=== PATIENT | male | born 1930 | race Caucasian/White ===

== ENCOUNTER → 2019-09-04 | Outpatient (CLI) | payer MEDICARE ==
[~2019-09-04] MED LIST: ACDPT PO; AMLO5TAB2 PO; BRIM5DRO7 OP; CPR500T PO; FINA5TAB PO; IBP600T1 PO; LABE100T2 PO; LVT.1T PO; MEGE20TA6 PO; NAPR-243 PO; NF-TYLARTH PO; OMEP20CA12 PO; OXYB5TAB9 PO; PHEN200T27 PO; ROSU10TA12 PO; SIMV40TA4 PO; TERA5CAP10 PO; TML5OP2.5 OP; TRAV5DRO2 OP
--- NOTE | 2019-09-04 11:59 | Diagnostic Imaging Report ---
Indication: Lower respiratory infection PA and lateral chest There is some consolidation at the right lung base. Left lung is clear. No appreciable effusion or pneumothorax. IMPRESSION: Right basilar consolidation suspicious for pneumonia. Dictated by: Dictated on workstation # [id number]
== END ==
LOC: RAD FS 10:54
PROVIDERS: ATTEND Nurse Practitioner Family
DX: J22 Unspecified acute lower respiratory infection (principal)
CPT/HCPCS: 71046

== ENCOUNTER → 2020-01-15 | Outpatient (CLI) | payer MEDICARE ==
--- NOTE | 2020-01-15 15:47 | Diagnostic Imaging Report ---
INDICATION: Fall with injury to head and blurred vision. TECHNIQUE: Multiple contiguous axial images were obtained through the brain without the use of intravenous contrast. Auto Exposure Controls were utilized during the CT exam to meet ALARA standards for radiation dose reduction. There is no previous study for comparison. There are mild diffuse atrophic changes. There are patchy low-density changes in the deep white matter compatible with chronic ischemic change. There is mild ventriculomegaly due to volume loss. There is no acute hemorrhage or mass effect or midline shift. Calvarial windows show no evidence of fracture. IMPRESSION: Chronic changes as described above with no acute intracranial abnormality. Dictated by: Dictated on workstation # [id number]
== END ==
LOC: RAD FS 15:15
PROVIDERS: ATTEND Nurse Practitioner Family
DX: S09.90XA Unspecified injury of head, initial encounter (principal); W19.XXXA Unspecified fall, initial encounter
CPT/HCPCS: 70450

== ENCOUNTER 2020-11-04 21:22 | Emergency (ER) | payer MEDICARE ==
[2020-11-04 21:46] VITALS: BP 197/64
--- NOTE | 2020-11-04 21:47 | ED Fall/Injury ---
General Stated Complaint: FALL Source: patient, EMS History of Present Illness Date Seen by Provider: Nov 04, 2020 Time Seen by Provider: 21:23 Initial Comments 89-year-old male presenting by EMS from home after having fallen. Patient denies having any pain other than skin tears. He has multiple skin tears on his extremities. He denies hitting his head or losing consciousness. He denies taking any blood thinners. He has a large skin tear to the left forearm, left forearm, right elbow. He states his last tetanus was within the last few years. He states he lost his balance and fell. He does have a dialysis shunt in his left arm that is intact with good thrill and bruit. He denies LOC, nausea, vomiting, chest pain, abdominal pain. Moving all extremities without pain/difficulty. Occurred: just prior to arrival Loss of Consciousness: no loss of consciousness Associated Symptoms (Fall): No Abdominal Pain, No Chest Pain, No Confusion, No Dizziness, No Headache, No Lightheadedness, No Muscle Spasms, No Nausea/Vomiting, No Neck Pain, No Ringing in Ears, No Seizures, No Shortness of Air, No Slurred Speech, No Trouble Walking, No Vision Changes (chronic decreased vision without acute change) Allergies and Home Medications Allergies Coded Allergies: No Known Drug Allergies (Unverified , 09/30/09) Home Medications Acetaminophen/Diphenhydramine 1 Ea Tab, 2 EA PO HS, (Reported) Amlodipine Besylate 5 Mg Tablet, 5 MG PO DAILY, (Reported) Brimonidine Tartrate 5 Ml Drops, 5 ML OP BID, (Reported) Ciprofloxacin 500 Mg Tablet, 1 TAB PO BID, (Reported) TAKE ONE BY MOUTH TWICE A DAY FOR 7 DAYS. USE ALL OF THIS MEDICATION PRESCRIBED Ibuprofen 600 Mg Tab, 600 MG PO DAILY, (Reported) Labetalol Hcl 100 Mg Tablet, 2 EACH PO DAILY, (Reported) Levothyroxine Sodium 100 Mcg Tablet, 1 EACH PO DAILY, (Reported) Megestrol Acetate 20 Mg Tablet, 20 MG PO BID, (Reported) Omeprazole 20 Mg Capsule.dr, 1 CAP PO DAILY, (Reported) Oxybutynin Chloride 5 Mg Tablet, 1 EACH PO TID, (Reported) Phenazopyridine Hcl 200 Mg Tablet, 1 EACH PO TID PRN, (Reported) MAY TAKE ONE TABLET BY MOUTH UP TO THREE TIMES A DAY NEEDED FOR BLADDER SPASM/PAIN Rosuvastatin Calcium 10 Mg Tablet, 1 EACH PO DAILY, (Reported) Timolol Maleate 5 Ml Btl, 1 DROP OP BID, (Reported) Travoprost (Benzalkonium) 5 Ml Drops, 5 ML OP DAILY, (Reported) Patient Home Medication List Home Medication List Reviewed: Yes Review of Systems Review of Systems Constitutional: No chills, No fever Eyes: See HPI Ears, Nose, Mouth, Throat: no symptoms reported Respiratory: no symptoms reported Cardiovascular: no symptoms reported Gastrointestinal: no symptoms reported Genitourinary: no symptoms reported Musculoskeletal: see HPI Skin: see HPI Psychiatric/Neurological: See HPI Past Wzzvndf-Kvyyxs-Xyvypj Hx Past Medical History Hypertension Reproductive Disorders: No Dialysis Physical Exam Vital Signs Vital Signs - First Documented 11/04/20 21:46 Pulse 67 Resp 18 B/P (MAP) 197/64 (108) Pulse Ox 97 O2 Delivery Room Air Capillary Refill : Height, Weight, BMI Height: '" Weight: lbs. oz. kg; BMI Method: General Appearance: no apparent distress, other (chronically ill) HEENT: other (hard of hearing with hearing aids inplace bilaterally) Neck: non-tender, supple Cardiovascular: normal peripheral pulses, regular rate, rhythm Respiratory: chest non-tender, lungs clear Gastrointestinal: normal bowel sounds, non tender, soft, no pulsatile mass Extremities: normal range of motion, normal capillary refill, other (mild tenderness at sites of skin tears on arms) Neurologic/Psychiatric: manager army II-XII nml as tested, alert, normal mood/affect, oriented x 3 Skin: warm/dry, other (thin skin with multiple skin tears to left forearm, left upper arm, right elbow) Prasanna Coma Score Best Eye Response: (4) Open Spontaneously Best Verbal Response: (5) Oriented Best Motor Response: (6) Obeys Commands Wallace Total: 15 Progress/Results/Core Measures Results/Orders Vital Signs/I&O 11/04/20 21:46 Pulse 67 Resp 18 B/P (MAP) 197/64 (108) Pulse Ox 97 O2 Delivery Room Air Progress Progress Note : Progress Note cleaned skin tears with chlorhexidine and sterile water. nurse attempted to reapproximate wound edges and use steri strips to hold skin tears in place. Then applied nonstick dressings. Counseled on follow up and return precautions and wound care. As he is not on blood thinners and did not hit head, has no LOC, is alert and oriented will defer imaging. Departure Impression Primary Impression: Skin tear of left upper arm without complication Qualified Codes: S41.112A - Laceration without foreign body of left upper arm, initial encounter Additional Impressions: Skin tear of left forearm without complication Qualified Codes: S51.812A - Laceration without foreign body of left forearm, initial encounter Skin tear of right elbow without complication Qualified Codes: S51.011A - Laceration without foreign body of right elbow, initial encounter Fall Qualified Codes: W19.XXXA - Unspecified fall, initial encounter Disposition: HOME, SELF-CARE Condition: Stable Departure-Patient Inst. Decision time for Depature: 21:46 Referrals: [facility] [place] (PCP/Family) Primary Care Physician Patient Instructions: Preventing Falls ED, Wound Care ED Add. Discharge Instructions: Keep skin tears clean with gentle soap and water. The steri strips will come off on their own after a week or so. Follow up with clinic for continued concerns about the skin tears or signs of infection GINNY AGUILAR MD Nov 04, 2020 21:47
== END 2020-11-04 21:55 | disposition home or self-care (01) ==
LOC: EDUNIT# 21:22 → ER FS 21:22
DX: S41.112A Laceration without foreign body of left upper arm, initial encounter (principal); S51.812A Laceration without foreign body of left forearm, initial encounter; S51.011A Laceration without foreign body of right elbow, initial encounter; I10 Essential (primary) hypertension; Z79.899 Other long term (current) drug therapy; Z99.2 Dependence on renal dialysis; W18.30XA Fall on same level, unspecified, initial encounter

== ENCOUNTER 2020-11-22 08:43 | Emergency (ER) | payer MEDICARE ==
[~2020-11-22] VITALS: Ht 167.7 cm; Wt 63.5 kg
--- NOTE | 2020-11-22 09:19 | Diagnostic Imaging Report ---
INDICATION: Fall with right posterior rib pain. COMPARISON: 09/04/2019. EXAMINATION: Right ribs, 3 views. FINDINGS: The PA chest shows cardiomegaly. There has been development of pulmonary venous congestion with interstitial infiltrates and small pleural effusions since the previous exam. No rib fractures are demonstrated. No pneumothorax. IMPRESSION: 1. Changes have occurred since the previous exam, consistent with congestive failure with pulmonary edema and small pleural effusions. 2. No displaced rib fractures are demonstrated. No pneumothorax. Dictated by: Dictated on workstation # [id number]
[2020-11-22] MEDS ORDERED: DOXY100C2 (09:21)
[2020-11-22] MEDS ORDERED: VIT1TABL52 (09:21)
[2020-11-22] MEDS ORDERED: ACETAMINOPHEN 500 MG TAB (TYLENOL) PO STA (09:36)
[2020-11-22] MEDS ORDERED: ACHD5005 PO (09:42)
--- NOTE | 2020-11-22 09:43 | ED Fall/Injury ---
General Chief Complaint: Back Problems Stated Complaint: FALL Nursing Triage Note: transports pt per POV to ED requiring assistance as pt with severe right sided back pain increased with movements. states they are in route to dialysis at [facility]. Pt was walking with walker in his garage last night when he fell to floor on right side. Pt's neighbors do lift assist for . Source: patient, old records, spouse History of Present Illness Date Seen by Provider: Nov 22, 2020 Time Seen by Provider: 08:45 Initial Comments 89-year-old male presenting with his to the emergency department due to right sided rib pain. 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 He has a walker that he uses to help get around with. Last night while he was walking for exercise in the garage he stopped to rest and the walker did not walk properly and he fell. He was having pain to the right chest wall and got Tylenol last night. He was able to rest but today when he got up to go to dialysis he was still having severe pain so they stopped here to be evaluated before going to dialysis. He denies any new shortness of breath, fever, chills, loss of consciousness, nausea, vomiting Occurred: yesterday Severity: severe Injuries/Pain Location: chest (Right-sided ribs) Loss of Consciousness: no loss of consciousness Modifying Factors: Worse With Movement Associated Symptoms (Fall): No Abdominal Pain, No Confusion, No Dizziness, No Headache, No Lightheadedness, No Muscle Spasms, No Nausea/Vomiting, No Neck Pain, No Ringing in Ears, No Seizures, No Shortness of Air, No Slurred Speech; Trouble Walking (Chronic and has to use a walker); No Vision Changes Allergies and Home Medications Allergies Coded Allergies: No Known Drug Allergies (Unverified , 09/30/09) Patient Home Medication List Home Medication List Reviewed: Yes Acetaminophen/Diphenhydramine (Tylenol Pm) 1 Ea Tab, 2 EA PO HS, (Reported) Entered as Reported by: TERESA MINOR on 09/30/091435 Last Action: Last Taken Edited Amlodipine Besylate (Amlodipine Besylate) 5 Mg Tablet, 5 MG PO DAILY, (Reported) Entered as Reported by: TERESA MINOR on 09/30/091435 Last Action: Last Taken Edited Brimonidine Tartrate (Brimonidine Tartrate) 5 Ml Drops, 5 ML OP BID, (Reported) Entered as Reported by: TERESA MINOR on 09/30/091435 Last Action: Last Taken Edited Doxycycline Hyclate (Doxycycline Hyclate) 100 Mg Capsule, (Reported) Entered as Reported by: NITO ROJAS on 11/22/20920 Last Action: New Order Hydrocodone/Acetaminophen (Hydrocodone-Acetamin 5-325 mg) 1 Each Tablet, 1 TAB PO Q8H PRN for PAIN-SEVERE (8-10) Prescribed by: GINNY AGUILAR on 11/22/20942 Ibuprofen (Motrin) 600 Mg Tab, 600 MG PO DAILY, (Reported) Entered as Reported by: TERESA MINOR on 07/27/11733 Last Action: Last Taken Edited Labetalol Hcl (Labetalol Hcl) 100 Mg Tablet, 2 EACH PO DAILY, (Reported) Entered as Reported by: TERESA MINOR on 09/30/091435 Last Action: Last Taken Edited Levothyroxine Sodium (Levothyroxine 100 Mcg Tab) 100 Mcg Tablet, 1 EACH PO DAILY, (Reported) Entered as Reported by: TERESA MINOR on 09/30/091435 Last Action: Last Taken Edited Megestrol Acetate (Megestrol Acetate) 20 Mg Tablet, 20 MG PO BID, (Reported) Entered as Reported by: TERESA MINOR on 09/30/091435 Last Action: Last Taken Edited Omeprazole (Omeprazole) 20 Mg Capsule.dr, 1 CAP PO DAILY, (Reported) Entered as Reported by: TERESA MINOR on 09/30/091435 Last Action: Last Taken Edited Oxybutynin Chloride (Oxybutynin Chloride) 5 Mg Tablet, 1 EACH PO TID, (Reported) Entered as Reported by: TERESA MINOR on 07/27/11733 Last Action: Last Taken Edited Rosuvastatin Calcium (Crestor) 10 Mg Tablet, 1 EACH PO DAILY, (Reported) Entered as Reported by: TERESA MINOR on 07/27/11733 Last Action: Last Taken Edited Timolol Maleate (Timoptic 0.5%) 5 Ml Btl, 1 DROP OP BID, (Reported) Entered as Reported by: TERESA MINOR on 09/30/091435 Last Action: Last Taken Edited Travoprost (Benzalkonium) (Travatan 0.004% Eye Drop) 5 Ml Drops, 5 ML OP DAILY, (Reported) Entered as Reported by: TERESA MINOR on 09/30/09 1436 Last Action: Last Taken Edited Vit B Cmplx 3/FA/Vit C/Biotin (Nephro-Oj Rx Tablet) 1 Each Tablet, (Reported) Entered as Reported by: NITO ROJAS on 11/22/2021 Last Action: New Order Discontinued Medications Ciprofloxacin (Cipro) 500 Mg Tablet, 1 TAB PO BID, (Reported) Discontinued Reason: Referral/FU Appt-Addtl Entered as Reported by: DIMPLE QUIROZ on 08/01/11930 Last Action: Discontinued Phenazopyridine Hcl (Pyridium) 200 Mg Tablet, 1 EACH PO TID PRN, (Reported) Discontinued Reason: Referral/FU Appt-Addtl Entered as Reported by: DIMPLE QUIROZ on 08/01/11930 Last Action: Discontinued Review of Systems Review of Systems Constitutional: see HPI Eyes: See HPI Ears, Nose, Mouth, Throat: no symptoms reported Respiratory: see HPI Cardiovascular: no symptoms reported Gastrointestinal: no symptoms reported Musculoskeletal: see HPI Skin: change in color (bruising to right side of chest) Psychiatric/Neurological: Denies Headache Past Eqrnuxm-Javabt-Lydomc Hx Patient Social History Tobacco Use?: Yes Smokeless Tobacco Frequency: Current Everyday User Use of E-Cig and/or Vaping dev: No Substance use?: No Alcohol Use?: Yes Alcohol type: Hard Liquor Alcohol Frequency: Couple times a week Pt feels they are or have been: No Immunizations Up To Date First/Initial COVID19 Vaccinat: 04/10/20 Second COVID19 Vaccination [place]: 05/02/20 COVID19 Vaccine Drier Operator Head: Regine Past Medical History Surgery/Hospitalization HX: ESRD- Hemodialysis Hypertension Reproductive Disorders: No Dialysis Physical Exam Vital Signs Vital Signs - First Documented 11/22/20 08:50 Temp 36.7 Pulse 66 Resp 22 B/P (MAP) 207/73 (117) Pulse Ox 96 O2 Delivery Room Air Capillary Refill : Less Than 3 Seconds Height, Weight, BMI Height: '" Weight: lbs. oz. kg; 22.00 BMI Method: General Appearance: other (chronically ill) Neck: non-tender, full range of motion, supple, normal inspection Cardiovascular: normal peripheral pulses Respiratory: No no respiratory distress, No no accessory muscle use; decreased breath sounds, crackles; No stridor; other (tender to palpation and movement of right side of chest) Gastrointestinal: normal bowel sounds, non tender, soft, no pulsatile mass Extremities: normal range of motion, normal capillary refill Neurologic/Psychiatric: alert, oriented x 3 Skin: warm/dry [place] Coma Score Best Eye Response: (4) Open Spontaneously Best Verbal Response: (5) Oriented Best Motor Response: (6) Obeys Commands Prasanna Total: 15 Progress/Results/Core Measures Results/Orders My Orders Orders - GINNY AGUILAR MD Ribs/Unilateral With Chest (11/22/20 08:54) Acetaminophen Tablet (Tylenol Tablet) (11/22/20 09:36) Vital Signs/I&O 11/22/20 11/22/20 08:50 09:40 Temp 36.7 36.7 Pulse 66 Resp 22 B/P (MAP) 207/73 (117) Pulse Ox 96 O2 Delivery Room Air Blood Pressure Mean: 117 Progress Progress Note #1: Progress Note I saw the patient as he came in by wheelchair from the car. I was performing a procedure on another patient so I had the nurses finish with his triage and fount his only area of pain was in right chest wall. Ordered chest film with unilateral ribs. Progress Note #2: Progress Note Xrays do not demonstrate any acute fractures of ribs. increased pulmonary vascular congestion/heart failure consistent with needing dialysis today. Give Acetaminophen for pain and send script for a few hydrocodone for severe pain. Counseled on ice and heat for chest wall pain and why to avoid using comopression of ribs and chest since could cause pneumonia. Advised of follow up and return precautions. Diagnostic Imaging Diagonstic Imaging: Xray Plain Films/CT/US/NM/MRI: chest Comments [facility]. [place], [place] NAME: [facility] REC#: [id number] PT STATUS: REG ER : 1930 PHYSICIAN: GINNY AGUILAR MD ADMIT DATE: 11/22/20/ER FS Draft Date of Exam:11/22/20 RIBS/UNILATERAL WITH CHEST INDICATION: Fall with right posterior rib pain. COMPARISON: 09/04/2019. EXAMINATION: Right ribs, 3 views. FINDINGS: The PA chest shows cardiomegaly. There has been development of pulmonary venous congestion with interstitial infiltrates and small pleural effusions since the previous exam. No rib fractures are demonstrated. No pneumothorax. IMPRESSION: 1. Changes have occurred since the previous exam, consistent with congestive failure with pulmonary edema and small pleural effusions. 2. No displaced rib fractures are demonstrated. No pneumothorax. Dictated on workstation # [id number] Dict: 11/22/20914 Trans: 11/22/20918 [id number] Interpreted by: SRIRMA REYNOSO MD Electronically signed by: Reviewed: Reviewed by Me Departure Impression Primary Impression: Contusion of right chest wall Qualified Codes: S20.211A - Contusion of right front wall of thorax, initial encounter Additional Impression: Fall at home Qualified Codes: W19.XXXA - Unspecified fall, initial encounter; Y92.009 - Unspecified place in unspecified non-institutional (private) residence as the place of occurrence of the external cause Disposition: HOME, SELF-CARE Condition: Stable Departure-Patient Inst. Decision time for Depature: 09:43 Referrals: EVERETTE CASTLE APRN (PCP) Primary Care Physician [facility] (Family) Primary Care Physician Patient Instructions: Preventing Falls ED, Rib Fracture or Bruised Rib ED Add. Discharge Instructions: Take Acetaminophen for pain and alternate ice and heat to your side to help with inflammation and pain. If the Acetaminophen is not strong enough to control your pain alone then you can take the Hydrocodone for severe pain and each of those pills has 325 mg of Acetaminophen in the pill. Limit your Acetaminophen dosage to under 3,000 mg in a 24 hour period. Check back with clinic if having continued pain and problems All discharge instructions reviewed with patient and/or family. Voiced understanding. Scripts Hydrocodone/Acetaminophen (Hydrocodone-Acetamin 5-325 mg) 1 Each Tablet 1 TAB PO Q8H PRN for PAIN-SEVERE (8-10) for 7 Days, #20 TAB 0 Refills Prov: GINNY AGUILAR MD 11/22/20 GINNY AGUILAR MD Nov 22, 2020 09:43
[2020-11-22 09:46] VITALS: BP 206/73
== END 2020-11-22 09:46 | disposition home or self-care (01) ==
LOC: EDUNIT# 08:43 → ER FS 08:44
DX: S20.211A Contusion of right front wall of thorax, initial encounter (principal); I12.0 Hypertensive chronic kidney disease with stage 5 chronic kidney disease or end stage renal disease; N18.6 End stage renal disease; H54.8 Legal blindness, as defined in USA; F17.200 Nicotine dependence, unspecified, uncomplicated; Z99.2 Dependence on renal dialysis; Z79.899 Other long term (current) drug therapy; W18.39XA Other fall on same level, initial encounter; Y92.008 Other place in unspecified non-institutional (private) residence as the place of occurrence of the external cause
CPT/HCPCS: 71101

== ENCOUNTER → 2020-12-02 | Outpatient (CLI) | payer MEDICARE ==
[~2020-12-02] MED LIST changes: +ACHD5005 PO; +DOXY100C5; +VIT1TABL52
[2020-12-02 14:12] LABS: HEMATOCRIT 38 % (40-54); HEMOGLOBIN 11.6 g/dL (13.3-17.7); MEAN CORPUSCULAR HEMOGLOBIN 32 pg (25-34); MEAN CORPUSCULAR VOLUME 104 fL (80-99); WHITE BLOOD COUNT 5.2 10^3/uL (4.3-11.0)
[2020-12-02 14:13] LABS: BASOPHILS % (AUTO) 0 % (0-10); EOSINOPHILS % (AUTO) 2 % (0-10); LYMPHOCYTES % (AUTO) 5 % (12-44); MEAN CORPUSCULAR HGB CONC 31 g/dL (32-36); MEAN PLATELET VOLUME 10.8 fL (9.0-12.2); MONOCYTES % (AUTO) 7 % (0-12); NEUTROPHILS % (AUTO) 86 % (42-75); PLATELET COUNT 168 10^3/uL (130-400)
[2020-12-02 14:14] LABS: EOSINOPHILS # (AUTO) 0.1 10^3/uL (0.0-0.3); LYMPHOCYTES # (AUTO) 0.3 X 10^3 (1.0-4.0); MONOCYTES # (AUTO) 0.3 X 10^3 (0.0-1.0); NEUTROPHILS # (AUTO) 4.4 X 10^3 (1.8-7.8)
[2020-12-02 14:28] LABS: POTASSIUM 3.6 MMOL/L (3.6-5.0)
[2020-12-02 14:29] LABS: ALBUMIN 3.7 GM/DL (3.2-4.5); BILIRUBIN,TOTAL 0.5 MG/DL (0.1-1.0); CALCIUM 8.9 MG/DL (8.5-10.1); CREATININE SERUM 3.96 MG/DL (0.60-1.30); TOTAL PROTEIN 6.7 GM/DL (6.4-8.2)
[2020-12-02 14:42] LABS: BAND NEUTROPHILS 1 %; BASOPHILS % (MANUAL) 0 %; EOSINOPHILS % (MANUAL) 0 %; LYMPHOCYTES % (MANUAL) 5 %; MONOCYTES % (MANUAL) 8 %; NEUTROPHILS % (MANUAL) 86 %
== END ==
LOC: LAB FS 13:51
PROVIDERS: ATTEND Nurse Practitioner Family
DX: D64.9 Anemia, unspecified (principal); R41.82 Altered mental status, unspecified; Z99.2 Dependence on renal dialysis
CPT/HCPCS: 36415; 80053; 85007; 85027

== ENCOUNTER → 2020-12-03 | Outpatient (CLI) | payer MEDICARE ==
[2020-12-03 15:39] LABS: BACTERIA,URINE FEW /HPF; BILIRUBIN,URINE NEGATIVE (NEGATIVE); CLARITY,URINE CLEAR; COLOR,URINE YELLOW; GLUCOSE, URINE (UA) NEGATIVE (NEGATIVE); KETONES,URINE NEGATIVE (NEGATIVE); LEUKOCYTE ESTERASE ,URINE NEGATIVE (NEGATIVE); NITRITE,URINE NEGATIVE (NEGATIVE); PH,URINE 7.5 (5-9); PROTEIN,URINE 2+ (NEGATIVE); WBC,URINE 25-50 /HPF
== END ==
LOC: PVFS 15:26
PROVIDERS: ATTEND Nurse Practitioner Family
DX: D64.9 Anemia, unspecified (principal); R41.82 Altered mental status, unspecified; Z99.2 Dependence on renal dialysis
CPT/HCPCS: 81000; 87088

== ENCOUNTER 2020-12-30 08:14 | Emergency (ER) | payer MEDICARE ==
[~2020-12-30] VITALS: Ht 172.7 cm; Wt 63.5 kg
--- NOTE | 2020-12-30 08:30 | ED General ---
General Chief Complaint: General Problems/Pain Stated Complaint: BLEEDING FISTULA Source of Information: Patient Exam Limitations: No Limitations History of Present Illness Date Seen by Provider: Dec 30, 2020 Time Seen by Provider: 08:15 Initial Comments Patient is an 89-year-old dialysis patient who presents with bleeding through left AV fistula shunt. Patient last dialysis yesterday afternoon. He lives at home and his states she bandaged patient after dialysis yesterday upon removing it this morning, the patient had a large clot the bandage and had a brisk bleed. On EMS arrival, pressure was held and a fresh bandage was placed. Patient has not bled through the bandage. He is not currently on anticoagulation therapy. He is not dizzy or lightheaded. No other acute symptoms or complaints. Additional history per EMS and the patient's spouse who is at bedside. Timing/Duration: 1-3 Hours Severity: Mild Modifying Factors: improves with Other Associated Systoms: Other Allergies and Home Medications Allergies Coded Allergies: No Known Drug Allergies (Unverified , 09/30/09) Patient Home Medication List Home Medication List Reviewed: Yes Acetaminophen/Diphenhydramine (Tylenol Pm) 1 Ea Tab, 2 EA PO HS, (Reported) Entered as Reported by: TERESA MINOR on 09/30/09 1436 Amlodipine Besylate (Amlodipine Besylate) 5 Mg Tablet, 5 MG PO DAILY, (Reported) Entered as Reported by: TERESA MINOR on 09/30/09 1436 Brimonidine Tartrate (Brimonidine Tartrate) 5 Ml Drops, 5 ML OP BID, (Reported) Entered as Reported by: TERESA MINOR on 09/30/09 1436 Doxycycline Hyclate (Doxycycline Hyclate) 100 Mg Capsule, (Reported) Entered as Reported by: NITO ROJAS on 11/22/20 0921 Hydrocodone/Acetaminophen (Hydrocodone-Acetamin 5-325 mg) 1 Each Tablet, 1 TAB PO Q8H PRN for PAIN-SEVERE (8-10) Prescribed by: GINNY AGUILAR on 11/22/20 0943 Ibuprofen (Motrin) 600 Mg Tab, 600 MG PO DAILY, (Reported) Entered as Reported by: TERESA MINOR on 07/27/11 0734 Labetalol Hcl (Labetalol Hcl) 100 Mg Tablet, 2 EACH PO DAILY, (Reported) Entered as Reported by: TERESA MINOR on 09/30/09 1436 Levothyroxine Sodium (Levothyroxine 100 Mcg Tab) 100 Mcg Tablet, 1 EACH PO DAILY, (Reported) Entered as Reported by: TERESA MINOR on 09/30/09 143 Megestrol Acetate (Megestrol Acetate) 20 Mg Tablet, 20 MG PO BID, (Reported) Entered as Reported by: TERESA MINOR on 09/30/09 1436 Omeprazole (Omeprazole) 20 Mg Capsule.dr, 1 CAP PO DAILY, (Reported) Entered as Reported by: TERESA MINOR on 09/30/09 1436 Oxybutynin Chloride (Oxybutynin Chloride) 5 Mg Tablet, 1 EACH PO TID, (Reported) Entered as Reported by: ETRESA MINOR on 07/27/11 0734 Rosuvastatin Calcium (Crestor) 10 Mg Tablet, 1 EACH PO DAILY, (Reported) Entered as Reported by: TERESA MINOR on 07/27/11 0734 Timolol Maleate (Timoptic 0.5%) 5 Ml Btl, 1 DROP OP BID, (Reported) Entered as Reported by: TERESA MINOR on 09/30/09 1436 Travoprost (Benzalkonium) (Travatan 0.004% Eye Drop) 5 Ml Drops, 5 ML OP DAILY, (Reported) Entered as Reported by: TERESA MINOR on 09/30/09 1436 Vit B Cmplx 3/FA/Vit C/Biotin (Nephro-Oj Rx Tablet) 1 Each Tablet, (Reported) Entered as Reported by: NITO ROJAS on 11/22/20 0921 Review of Systems Review of Systems Constitutional: see HPI EENTM: see HPI Respiratory: see HPI Cardiovascular: see HPI Gastrointestinal: see HPI Genitourinary: see HPI Musculoskeletal: see HPI Skin: see HPI Psychiatric/Neurological: See HPI Hematologic/Lymphatic: See HPI Immunological/Allergic: see HPI All Other Systems Reviewed Negative Unless Noted: Yes Past Lddjkan-Lmsgyr-Ycsgup Hx Patient Social History Tobacco Use?: Yes Immunizations Up To Date First/Initial COVID19 Vaccinat: 04/10/20 Second COVID19 Vaccination [place]: 05/02/20 Past Medical History Surgery/Hospitalization HX: ESRD- Hemodialysis Hypertension Reproductive Disorders: No Dialysis Physical Exam Vital Signs Capillary Refill : Height, Weight, BMI Height: '" Weight: lbs. oz. kg; 22.00 BMI Method: General Appearance: No Apparent Distress Eyes: Bilateral Eye Normal Inspection, Bilateral Eye PERRL HEENT: PERRL/EOMI Respiratory: Lungs Clear Cardiovascular: Regular Rate, Rhythm Extremity: Other (Left arm AV shunt with bandage. No bleeding through bandage. Am able to fit 1 5 fingers between bandaged and the dressing. Good distal pulses.) Neurologic/Psychiatric: Alert, Oriented x3, No Motor/Sensory Deficits Focused Exam Sepsis Stage: Ruled Out Progress/Results/Core Measures Suspected Sepsis SIRS Temperature: Pulse: Respiratory Rate: Blood Pressure / Mean: Results/Orders Vital Signs/I&O Capillary Refill : Departure Communication (Admissions) Bleeding resolved prior to ED arrival bandage. Suspect when patient's spouse removed small clot over AV fistula causing rebleed this morning. Bandage does not appear to be too tight. Will leave on and have dialysis team removed tomorrow. All patient's patient's past questions answered prior to discharge Impression Primary Impression: Complication of AV dialysis fistula Disposition: 01 HOME, SELF-CARE Condition: Stable Departure-Patient Inst. Decision time for Depature: 08:29 Referrals: EVERETTE CASTLE APRN (PCP) Primary Care Physician [facility] (Family) Primary Care Physician Patient Instructions: Arteriovenous Fistula for Dialysis Add. Discharge Instructions: Please leave bandage in place until dialysis tomorrow. Return to the ED if new or worsening symptoms All discharge instructions reviewed with patient and/or family. Voiced understanding. BEN ESCOBAR DO Dec 30, 2020 08:30
[2020-12-30 08:46] VITALS: BP 171/81
== END 2020-12-30 08:46 | disposition home or self-care (01) ==
LOC: EDUNIT# 08:14 → ER FS 08:15
DX: T82.838A Hemorrhage due to vascular prosthetic devices, implants and grafts, initial encounter (principal); I12.0 Hypertensive chronic kidney disease with stage 5 chronic kidney disease or end stage renal disease; N18.6 End stage renal disease; Z99.2 Dependence on renal dialysis; Z79.899 Other long term (current) drug therapy
CPT/HCPCS: 99283